=== PATIENT | male | born 1945 | race Caucasian/White ===

== ENCOUNTER 2018-02-26 21:28 | Emergency (ER) | payer MEDICARE ==
[2018-02-26 22:33] LABS: Bilirubin Negative (Negative); Blood, Urine Negative (Negative); Clarity CLEAR (Clear); Glucose, Urine (Dipstick) Negative (Negative); Leukocyte Negative (Negative); Nitrite Negative (Negative); Protein, Urine (Dipstick) Negative (Neg-Trace); Specific Gravity, Urine 1.008 (1.002-1.036); Urobilinogen 0.2 mg/dL (0.2-1.0); pH, Urine 5.5 (5.0-9.0)
[2018-02-26 22:36] LABS: #Eosinphils 0.4 thou/uL (0.0-0.7); #Lymphocytes 1.7 thou/uL (1.20-3.40); #Monocytes 0.5 thou/uL (0.11-0.59); #Neutrophils 2.4 thou/uL (1.40-6.50); %Basophils 0.8 % (0.0-1.0); %Eosinophils 8.7 % (0.0-10.0); %Lymphocytes 33.4 % (21.0-51.0); %Monocytes 9.2 % (0.0-10.0); Hemoglobin 15.9 g/dL (14.0-18.0); Mean Corpuscular Hemoglobin 32.1 pg (27.0-31.0); Mean Corpuscular Volume 94.6 fl (80.0-94.0); Mean Platelet Volume 5.9 fL (7.4-10.4); Platelet Count 232 thou/uL (130-400); RBC Distribution Width 12.2 % (11.5-14.5); Red Blood Cell (RBC) Count 4.96 mill/uL (4.70-6.10); White Blood Cell (WBC) Count 5.1 thou/uL (4.8-10.8)
[2018-02-26 22:53] LABS: Amphetamine Not Detected (NotDetected); Barbiturates Screen Not Detected (NotDetected); Benzodiazepine Screen Not Detected (NotDetected); Cocaine Metabolite Screen Not Detected (NotDetected); Medtox Control Line Valid? VALID (VALID); Medtox Reader # READER 1; Methadone Not Detected (NotDetected); Methamphetamine Not Detected (NotDetected); Opiate Screen Not Detected (NotDetected); Oxycodone Screen Not Detected (NotDetected); Phencyclidine (PCP) Not Detected (NotDetected); THC/Cannabinoid Screen Not Detected (NotDetected); Tricyclic Screen Not Detected (NotDetected)
[2018-02-26 22:57] LABS: Acetaminophen Less than 6.0 mcg/mL (10.0-30.0); Alcohol 187 mg/dL (Less than 10); Salicylate Less than 8.0 mg/dL (15.0-30.0)
[2018-02-26 22:58] LABS: ALT (SGPT) 26 U/L (8-55); AST (SGOT) 29 U/L (5-34); Albumin 4.3 g/dL (3.4-4.8); Alkaline Phosphatase 91 U/L (40-150); Anion Gap 14 mmol/L (10-20); BUN (Urea Nitrogen) 12 mg/dL (8.4-25.7); Bilirubin, Total 0.4 mg/dL (0.2-1.2); Calc. Creatinine Clearance 0 mL/min (70-130); Calcium 9.2 mg/dL (7.8-10.44); Carbon Dioxide 21 mmol/L (23-31); Chloride 109 mmol/L (98-107); Estimated GFR-MDRD 75; Globulin 3.1 g/dL (2.4-3.5); Glucose 91 mg/dL (83-110); Potassium 3.6 mmol/L (3.5-5.1); Protein, Total 7.4 g/dL (5.8-8.1); Sodium 140 mmol/L (136-145)
== END 2018-02-26 23:50 | disposition home or self-care (01) ==
LOC: ERS 21:28
DX: F10.129 Alcohol abuse with intoxication, unspecified (principal); Z71.6 Tobacco abuse counseling; J45.909 Unspecified asthma, uncomplicated; F41.9 Anxiety disorder, unspecified; F32.9 Major depressive disorder, single episode, unspecified; F20.9 Schizophrenia, unspecified; F17.220 Nicotine dependence, chewing tobacco, uncomplicated; Z79.899 Other long term (current) drug therapy
CPT/HCPCS: 36415; 80053; 80306; 80307; 81003; 84443; 85025; 93005; 99406

== ENCOUNTER 2019-03-03 07:28 | Outpatient (CLI) | payer MEDICARE | END 2019-03-03 07:29 | disposition home or self-care (01) | LOC: CP 07:28 | PROVIDERS: ATTEND Family Medicine | DX: J45.40 Moderate persistent asthma, uncomplicated (principal) | CPT/HCPCS: 94060; 94727; 94729 ==

== ENCOUNTER 2019-04-14 13:07 | Outpatient (CLI) | payer MEDICARE ==
--- NOTE | 2019-04-14 13:34 | RAD ---
2 views of the chest: 04/14/2019 COMPARISON: 05/22/2018 History: Shortness of breath FINDINGS: No pneumothorax or pleural fluid. No focal consolidation or alveolar edema. Mild stable dif fuse increased linear interstitial density with pulmonary hyperinflation noted. Stable tiny nodular density projects over the right lung base measuring in the 4 mm range. IMPRESSION: Chronic findings as detailed above. No acute findings.
== END 2019-04-14 13:08 | disposition home or self-care (01) ==
LOC: BICRAD 13:07
PROVIDERS: ATTEND Internal Medicine Pulmonary Disease
DX: R06.00 Dyspnea, unspecified (principal); R91.8 Other nonspecific abnormal finding of lung field
CPT/HCPCS: 71046

== ENCOUNTER 2020-01-27 05:57 | Outpatient (CLI) | payer MEDICARE ==
[2020-01-27 11:08] LABS: #Basophils 0.1 thou/uL (0.0-0.2); #Eosinphils 0.4 thou/uL (0.0-0.7); #Lymphocytes 1.4 thou/uL (1.20-3.40); #Monocytes 0.6 thou/uL (0.11-0.59); #Neutrophils 2.2 thou/uL (1.40-6.50); %Basophils 1.2 % (0.0-1.0); %Eosinophils 7.6 % (0.0-10.0); %Lymphocytes 31.1 % (21.0-51.0); %Monocytes 12.5 % (0.0-10.0); %Neutrophils 47.6 % (42.0-75.0); Hemoglobin 14.7 g/dL (14.0-18.0); Mean Corpuscular HGB CONC 34.3 g/dL (32.0-36.0); Mean Corpuscular Hemoglobin 32.2 pg (27.0-31.0); Mean Corpuscular Volume 93.8 fL (78.0-98.0); Mean Platelet Volume 6.7 fL (7.4-10.4); Platelet Count 217 thou/uL (130-400); RBC Distribution Width 11.7 % (11.5-14.5); Red Blood Cell (RBC) Count 4.57 mill/uL (4.70-6.10); White Blood Cell (WBC) Count 4.6 thou/uL (4.8-10.8)
[2020-01-27 11:28] LABS: ALT (SGPT) 16 U/L (8-55); AST (SGOT) 17 U/L (5-34); Albumin 3.8 g/dL (3.4-4.8); Alkaline Phosphatase 71 U/L (40-110); Anion Gap 12 mmol/L (10-20); BUN (Urea Nitrogen) 15 mg/dL (8.4-25.7); Bilirubin, Total 0.4 mg/dL (0.2-1.2); Calc. Creatinine Clearance 0 mL/min (70-130); Calcium 8.8 mg/dL (7.8-10.44); Carbon Dioxide 23 mmol/L (23-31); Chloride 109 mmol/L (98-107); Estimated GFR-MDRD 71; Globulin 2.7 g/dL (2.4-3.5); Glucose 97 mg/dL (83-110); Protein, Total 6.5 g/dL (5.8-8.1); Sodium 140 mmol/L (136-145)
--- NOTE | 2020-01-27 21:01 | EKG ---
Test Reason : Blood Pressure : / mmHG Vent. Rate : 057 BPM Atrial Rate : 057 BPM P-R Int : 158 ms QRS Dur : 100 ms QT Int : 422 ms P-R-T Axes : 033 020 030 degrees QTc Int : 410 ms Sinus bradycardia Otherwise normal ECG When compared with ECG of 15-APR-1997 12:58, No significant change was found Confirmed by Juan JAEGER ([id number]) on 01/27/2020 9:00:32 PM Referred By: SAMMI Confirmed By:Juan JAEGER
== END 2020-01-27 05:58 | disposition home or self-care (01) ==
LOC: LABBT 05:57
PROVIDERS: ATTEND Surgery
DX: Z01.818 Encounter for other preprocedural examination (principal); C43.59 Malignant melanoma of other part of trunk
CPT/HCPCS: 80053; 85025; 93005; 93010

== ENCOUNTER 2020-01-28 07:21 | Day surgery (SDC) | payer MEDICARE ==
[2020-01-27 10:34] VITALS: BMI 27.9
[2020-01-28] MEDS ORDERED: Dexamethasone 20 MG/5 ML VIAL ONE (09:41)
[2020-01-28] MEDS ORDERED: Lidocaine 1% PF 5 ML VIAL ONE (09:41)
[2020-01-28] MEDS ORDERED: Rocuronium Bromide 10 MG/ML (10ML VIAL) ONE (09:41)
[2020-01-28] MEDS ORDERED: EPHEDRINE 25 MG/5 ML SYRINGE ONE (09:41)
[2020-01-28] MEDS ORDERED: Ondansetron PF 4 MG/2 ML Vial ONE (09:41)
[2020-01-28] MEDS ORDERED: PROPOFOL 200 MG/20 ML VIAL ONE (09:41)
[2020-01-28] MEDS ORDERED: Glycopyrrolate 0.2 MG/ML 5 ML SYRINGE ONE (09:41)
--- NOTE | 2020-01-28 09:44 | NM ---
NM Lymphoscintigraphy HISTORY: Malignant melanoma of skin, unspecified. RADIOPHARMACEUTICAL: 387 uCi of technetium 99m filtered sulfur colloid. Right lower neck/upper back perilesional Injection in divided doses. FINDINGS: There is tracer localization noted in a right supraclavicular lymph node and 2-3 lymph node s in the right axilla. IMPRESSION: [place] lymph node(s) in the right supraclavicular region and axilla.
[2020-01-28] MEDS ORDERED: Fentanyl 100 MCG/2 ML VIAL ONE (10:18)
[2020-01-28] MEDS ORDERED: Lidocaine 1% w/Epinephrine 1:100K 20 ML VIAL ONE (10:33)
[2020-01-28] MEDS ORDERED: Bupivacaine PF 0.5% 30 ML VIAL ONE (10:33)
[2020-01-28] MEDS ORDERED: Isosulfan Blue 50 MG/5 ML VIAL ONE (10:40)
--- NOTE | 2020-01-28 13:29 | OP ---
DATE OF PROCEDURE: 01/28/2020 PREOPERATIVE DIAGNOSIS: Good level IV malignant melanoma, right upper back. PROCEDURES PERFORMED: Lymphoscintigraphy, axillary sentinel lymph node biopsy, wide local excision. INDICATIONS: This is a 74-year-old male who had a change of a nevus, punch biopsy was positive for Good level IV malignant melanoma. FINDINGS: [place] nodes found right axilla, some other nodes were sent. 2 cm margins were obtained. DESCRIPTION OF PROCEDURE: After informed consent was obtained, the patient was taken to the operating room and given general endotracheal anesthesia. Lymphazurin 1.5 mL was infiltrated intradermally surrounding the lesion on his back. Then, he was placed supine and his axilla and chest were prepped and draped in usual fashion. The Neoprobe was then used as he was injected with radionucleotide in the nuclear medicine department. Transcutaneous counts of 50 were found after baseline counts of 8. A transverse axillary incision was performed. Subcu was divided sharply. In-vivo counts of 100 were found, but it was very difficult to extremely deep lymph node and was small, but I was able to find it but I had to take out other lymph nodes just to get down to it. These additional lymph nodes were sent as additional tissue for biopsy, but it was about a 4 mm lymph node that was somewhat dark. This was dissected out. Efferent and afferent lymphatics ligated with 3-0 Vicryl ties. Ex vivo counts of 130. This node was sent as sentinel node. Residual counts less than 20. Hemostasis was achieved with electrocautery. Subcu reapproximated with interrupted 3-0 Vicryl. Skin closed with a running subcuticular 4-0 Rapide. Steri-Strips applied. Sterile bandage applied. Then, the patient was flipped prone position. His back was prepped and draped in usual fashion. 2 cm margins were marked off. An elliptical incision was performed to excise the lesion. This was taken off the fascia with electrocautery, marked with a suture superior, sent to Pathology for further analysis. Hemostasis was achieved. Subcu reapproximated with interrupted 2-0 Vicryl. Skin closed with interrupted 2-0 Prolene vertical mattress sutures. Sterile bandage applied. The patient tolerated the procedure well and transferred to Recovery in good condition. Sponge and needle count verified correct x2. Job ID: [id number]
== END 2020-01-28 14:15 | disposition home or self-care (01) ==
LOC: SDC 07:21
PROVIDERS: ATTEND Surgery
PROC: 0HB6XZZ Excision of Back Skin, External Approach (ICD-10-PCS; principal; 2020-01-28)
PROC: 07B50ZX Excision of Right Axillary Lymphatic, Open Approach, Diagnostic (ICD-10-PCS; 2020-01-28)
DX: C43.59 Malignant melanoma of other part of trunk (principal); F10.20 Alcohol dependence, uncomplicated; F41.9 Anxiety disorder, unspecified; M19.90 Unspecified osteoarthritis, unspecified site; J45.909 Unspecified asthma, uncomplicated; E78.00 Pure hypercholesterolemia, unspecified; G89.29 Other chronic pain; Z79.899 Other long term (current) drug therapy
CPT/HCPCS: 11606; 38525; 78195; 88305; 88307; 88342; A9541; Q9968; J0690; J1100; J2001; J2405; J2704; J3010; S0020

== ENCOUNTER 2021-06-22 09:58 | Outpatient (CLI) | payer MEDICARE | END 2021-06-22 09:59 | disposition home or self-care (01) | LOC: BICRAD 09:58 | PROVIDERS: ATTEND Specialist | DX: J44.9 Chronic obstructive pulmonary disease, unspecified (principal) | CPT/HCPCS: 71046 ==